=== PATIENT | male | born 1955 | race African-American/Black ===

== ENCOUNTER 2016-12-01 21:16 | Inpatient (IN) | payer OTHER ==
[~2016-12-01] VITALS: Ht 170.2 cm; Wt 105.2 kg
[2016-12-01] MEDS ORDERED: NORVASC10 MG PO (21:33)
[2016-12-01 22:26] LABS: ADD MIUA? YES; BILIRUBIN NEGATIVE; BLOOD NEGATIVE; COLOR YELLOW ((YELLOW)); GLUCOSE (STRIP) NEGATIVE; KETONES NEGATIVE; LEUKOCYTES NEGATIVE; NITRITE NEGATIVE; PROTEIN (STRIP) 100
[2016-12-01 22:29] LABS: BACTERIA NONE SEEN /HPF; EPITHELIAL CELLS NONE SEEN /HPF; MUCUS NONE SEEN /LPF; RED BLOOD CELLS 0-5 /HPF (0-5); UCUL ADDED? NO; WHITE BLOOD CELLS 0-5 /HPF (0-5)
[2016-12-01 22:45] LABS: EOSINOPHIL (%) 0 % (0-5); HEMATOCRIT 36.6 % (38.0-50.0); IMMATURE GRANULOCYTE (%) 0.7 % (0.0-0.7); INSTRUMENT ABS NEUTROPHIL CT 4.6 K/uL; LYMPHOCYTE COUNT 0.7 K/uL (1.0-2.8); MCH 29.5 PG (29.0-34.0); MCHC 34.7 G/DL (30.0-36.0); MCV 85.1 FL (86-99); MEAN PLAT.VOLUME 12.2 uM^3 (9.0-12.4); MONOCYTE (%) 6.5 % (3-12); MONOCYTE COUNT 0.4 K/uL (0-0.8); NEUTROPHIL (%) 80.3 % (45-76); NEUTROPHIL COUNT 4.6 K/uL (1.8-6.4); PLATELET COUNT 190 K/uL (156-360); RBC DIS.WIDTH-CV 14.4 % (11.8-14.6); RBC DIS.WIDTH-SD 44.5 % (39-53); WHITE BLOOD COUNT 5.7 K/uL (4.1-10.2)
[2016-12-01 22:55] LABS: CHLORIDE 99 mEq/L (99-109); INTER. NORMALIZED RATIO 1.1; POTASSIUM 3.2 mEq/L (3.7-5.4); PROTHROMBIN TIME 11.7 (9.2-11.2); PTT 34.6 (25-32); SODIUM 130 mEq/L (136-147)
[2016-12-01 22:57] LABS: GLUCOSE 112 mg/dL (70-99)
[2016-12-01 22:59] LABS: ANION GAP 10 MEQ/L (2-14); TOTAL BILIRUBIN 0.4 mg/dL (0.0-1.0)
[2016-12-01 23:01] LABS: ALKALINE PHOSPHATASE 64 IU/L (3-129); GFR ESTIMATE (CALCULATED) > 59 mL/min/
[2016-12-01 23:02] LABS: UREA NITROGEN (BUN) 10 mg/dL (9-23)
[2016-12-01 23:04] LABS: LIPASE 37 U/L (1.0-51.0)
[2016-12-01 23:07] LABS: TROP-I INTERPRETATION NEGATIVE; TROPONIN-I < 0.01 ng/mL (0.0-0.30)
[2016-12-02] VITALS (12 sets, daily range): BP systolic 103–146; BP diastolic 56–79
[2016-12-02] MEDS ORDERED: ONE DAILY FOR1 EAC2 PO (00:12)
[2016-12-02 01:22] LABS: URIC ACID 3.8 mg/dL (3.1-9.2)
[2016-12-02 05:47] LABS: EOSINOPHIL (%) 0 % (0-5); HEMATOCRIT 38.9 % (38.0-50.0); IMMATURE GRANULOCYTE (%) 0.8 % (0.0-0.7); IMMATURE GRANULOCYTE COUNT 0.1 K/uL; INSTRUMENT ABS NEUTROPHIL CT 4.3 K/uL; MCH 29.1 PG (29.0-34.0); MCHC 33.9 G/DL (30.0-36.0); MCV 85.9 FL (86-99); MEAN PLAT.VOLUME 11.8 uM^3 (9.0-12.4); MONOCYTE (%) 9.8 % (3-12); MONOCYTE COUNT 0.6 K/uL (0-0.8); NEUTROPHIL COUNT 4.3 K/uL (1.8-6.4); PLATELET COUNT 178 K/uL (156-360); RBC DIS.WIDTH-CV 14.5 % (11.8-14.6); RBC DIS.WIDTH-SD 45.3 % (39-53); RED BLOOD COUNT 4.53 M/uL (4.00-5.50)
[2016-12-02 05:55] LABS: CHLORIDE 102 mEq/L (99-109); POTASSIUM 3.7 mEq/L (3.7-5.4); SODIUM 133 mEq/L (136-147)
[2016-12-02 05:57] LABS: GLUCOSE 94 mg/dL (70-99)
[2016-12-02 05:58] LABS: ANION GAP 8 MEQ/L (2-14)
[2016-12-02 06:00] LABS: GFR ESTIMATE (CALCULATED) > 59 mL/min/
[2016-12-02 06:01] LABS: UREA NITROGEN (BUN) 8 mg/dL (9-23)
[2016-12-02 07:50] LABS: INTERNAL CONTROL VALID? YES
[2016-12-03 03:38] VITALS: BP 107/61
[2016-12-03 05:29] LABS: HEMATOCRIT 35.7 % (38.0-50.0); MCH 29.9 PG (29.0-34.0); MCHC 34.2 G/DL (30.0-36.0); MCV 87.5 FL (86-99); PLATELET COUNT 166 K/uL (156-360); RBC DIS.WIDTH-CV 14.7 % (11.8-14.6); RBC DIS.WIDTH-SD 47.3 % (39-53); RED BLOOD COUNT 4.08 M/uL (4.00-5.50); WHITE BLOOD COUNT 4.9 K/uL (4.1-10.2)
[2016-12-03 05:51] LABS: ANION GAP 6 MEQ/L (2-14); CHLORIDE 104 MEQ/L (99-109); GFR ESTIMATE (CALCULATED) > 59 mL/min/; GLUCOSE 100 mg/dL (70-99); POTASSIUM 3.9 MEQ/L (3.7-5.4); SAMPLE HEMOLYSIS CHECK 0; SAMPLE ICTERIC CHECK 0; SAMPLE LIPEMIA CHECK 0; SODIUM 136 MEQ/L (136-147); UREA NITROGEN (BUN) 9 mg/dL (9-23)
[2016-12-03 07:13] LABS: ABS NEUTROPHIL COUNT 3.8; ANISOCYTOSIS 1+; ATYPICAL LYMPHOCYTE 3.5 %; BAND NEUTROPHILS 7.1 % (0-8.0); EOSINOPHIL ABS CT 0.1; EOSINOPHILS 2.7 % (0-5.0); LYMPHOCYTES 11.5 % (15.0-45.0); MYELOCYTES 0.9 %; NUCLEATED RBC'S 0.9; PLAT.SUFFICIENCY ADEQUATE; SEG.NEUTROPHILS 69.9 % (46.0-76.0)
[2016-12-03 08:05] VITALS: BP 116/76
[2016-12-03 11:33] VITALS: BP 120/77
[2016-12-03 15:42] VITALS: BP 120/74
[2016-12-03 19:15] VITALS: BP 115/67
[2016-12-03 23:00] VITALS: BP 104/59
[2016-12-04 04:30] VITALS: BP 120/68
[2016-12-04 05:24] LABS: EOSINOPHIL (%) 3.8 % (0-5); EOSINOPHIL COUNT 0.2 K/uL (0-0.3); HEMATOCRIT 36.2 % (38.0-50.0); IMMATURE GRANULOCYTE (%) 1.3 % (0.0-0.7); IMMATURE GRANULOCYTE COUNT 0.1 K/uL; INSTRUMENT ABS NEUTROPHIL CT 3.5 K/uL; MCHC 33.4 G/DL (30.0-36.0); MCV 86.8 FL (86-99); MEAN PLAT.VOLUME 11.7 uM^3 (9.0-12.4); MONOCYTE (%) 12.6 % (3-12); MONOCYTE COUNT 0.7 K/uL (0-0.8); NEUTROPHIL (%) 63.3 % (45-76); NEUTROPHIL COUNT 3.5 K/uL (1.8-6.4); PLATELET COUNT 199 K/uL (156-360); RBC DIS.WIDTH-CV 14.6 % (11.8-14.6); RED BLOOD COUNT 4.17 M/uL (4.00-5.50); WHITE BLOOD COUNT 5.5 K/uL (4.1-10.2)
[2016-12-04 05:46] LABS: ANION GAP 8 MEQ/L (2-14); CHLORIDE 105 MEQ/L (99-109); GFR ESTIMATE (CALCULATED) > 59 mL/min/; GLUCOSE 95 mg/dL (70-99); POTASSIUM 3.5 MEQ/L (3.7-5.4); SAMPLE HEMOLYSIS CHECK 0; SAMPLE ICTERIC CHECK 0; SAMPLE LIPEMIA CHECK 0; SODIUM 137 MEQ/L (136-147); UREA NITROGEN (BUN) 10 mg/dL (9-23)
[2016-12-04 07:39] VITALS: BP 111/68
[2016-12-04] MEDS ORDERED: AUGMENTIN875 MG PO (10:47)
[2016-12-04] MEDS ORDERED: BENZONATATE100 MG PO (10:47)
== END 2016-12-04 13:15 | disposition home or self-care (01) | DRG 194 ==
LOC: EDBD 21:16 → EME 21:16 → EDBD 12-02 00:44 → EDOF 12-02 00:44 → 4SOUTH 12-02 00:44
PROVIDERS: Emergency Medicine; Hospitalist; Internal Medicine
DX: J18.9 Pneumonia, unspecified organism (principal); E87.1 Hypo-osmolality and hyponatremia; E87.6 Hypokalemia; R09.02 Hypoxemia; I10 Essential (primary) hypertension; D64.9 Anemia, unspecified; K76.89 Other specified diseases of liver; E66.9 Obesity, unspecified; Z68.36 Body mass index [BMI] 36.0-36.9, adult; Z82.3 Family history of stroke
CPT/HCPCS: 71010; 71260; 80048; 80053; 81003; 82436; 83605; 83690; 83735; 83930; 83935; 84133; 84300; 84443; 84484; 84550; 85025; 85610; 85730; 87040; 87070; 87205; 87449; 94640; 94760; 94799; 99202; 99281; 99284; J0456; J0696; J1644; J1885; J7030; J7050